=== PATIENT | male | born 1995 | race Two or more races ===

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

== ENCOUNTER 2017-04-19 08:45 | Emergency (ER) | payer OTHER ==
[~2017-04-19] VITALS: Ht 167.6 cm; Wt 56.7 kg
[2017-04-19 09:50] VITALS: BP 143/68
[2017-04-19] MEDS ORDERED: KETOROLAC TROMETH 60MG/2ML VIAL IM ONE (10:45)
== END 2017-04-19 11:18 | disposition home or self-care (01) ==
LOC: ER 08:45
DX: J32.9 Chronic sinusitis, unspecified (principal)
CPT/HCPCS: 96372; 99283; J1885

== ENCOUNTER 2020-12-14 20:38 | Emergency (ER) | payer OTHER ==
[~2020-12-14] VITALS: Ht 170.2 cm; Wt 59.0 kg
[2020-12-14 22:11] LABS: Urine Bacteria NONE SEEN /hpf (None Seen); Urine Blood Negative /uL (Negative); Urine Mucus FEW (None Seen); Urine Specific Gravity 1.034 (1.001-1.035); Urine WBC 21 /hpf (0 - 3)
[2020-12-14 23:54] VITALS: BP 158/69
[2020-12-15] MEDS ORDERED: levoFLOXacin 500 MG TAB PO ONE (00:30)
[2020-12-15] MEDS ORDERED: cefTRIAXone SOD 1,000 MG VL IM ONE (00:30)
[2020-12-15] MEDS ORDERED: DOXYCYCLINE 100 MG TAB/CAP PO ONE (00:30)
[2020-12-15] MEDS ORDERED: ACETAMINOPHEN 325 MG TAB PO ONE (00:45)
== END 2020-12-15 01:36 | disposition home or self-care (01) ==
LOC: ER 20:40
DX: N45.1 Epididymitis (principal); N39.0 Urinary tract infection, site not specified
CPT/HCPCS: 76870; 81001; 96372; 99284; J0696